=== PATIENT | male | born 1960 | race Caucasian/White ===

== ENCOUNTER 2016-07-08 13:56 | Emergency (ER) | payer OTHER ==
--- NOTE | 2016-07-08 15:41 | DIAGNOSTIC IMAGING REPORT ---
PROCEDURE: XR CHEST 2 VIEW INDICATION: FEVER TECHNIQUE: PA and lateral view. COMPARISON: None. FINDINGS: Retrocardiac parenchymal changes suggestive of pneumonia. No effusion. Cardiovascular structures are normal. Bony thorax is unremarkable. IMPRESSION: 1. Retrocardiac infiltrate 2. Results discussed with Dr. Skelton
--- NOTE | 2016-07-08 18:44 | ED CLINICAL REPORT ---
Clinical Report - Physicians/Mid Levels [facility] [address] [place] [address] 07/08/2016 13:57 Patient: KATELYN HALL Time Seen: 14:47 Jul 08 2016. Arrived- By private vehicle. Historian- patient. CPT: ER phys charges level 4 (#[id number]). HISTORY OF PRESENT ILLNESS Chief Complaint: COUGH, SORE THROAT and MUSCLE ACHES. Is still present. The illness is described as moderate. The patient has had a cough, chest discomfort, a sore throat, fever and chills. He has had muscle aches. No sputum production, difficulty breathing or chest pain. Additional history - No known contact with a sick individual. ( weak.). Similar symptoms previously: None. Recent medical care: Not recently seen/assessed. REVIEW OF SYSTEMS The patient has had a headache. No eye discomfort, nausea, vomiting, diarrhea or abdominal pain. No hay fever, pedal edema, calf pain, difficulty with urination or skin rash. No enlarged lymph nodes. All systems otherwise negative, except as recorded above. PAST HISTORY Conjunctivitis. Eye Injury. Family history of diabetes. No history of asthma, chronic obstructive pulmonary disease or pneumonia. Medications: None. Allergies: None. SOCIAL HISTORY Never smoker. No alcohol use or drug use. ADDITIONAL NOTES The nursing notes have been reviewed. PHYSICAL EXAM Vital Signs: 07/08/2016 14:09 BP: 143/65. HR: 73. RR: 18. O2 saturation: 97%. Temp: 99.2 F. Appearance: Alert. Patient in mild distress. Eyes: Pupils equal, round and reactive to light. Eyes normal inspection. ENT: Ears normal. Nose normal. Pharynx normal. Uvula midline. Neck: Normal inspection. Neck supple. CVS: Normal heart rate and rhythm. Heart sounds normal. Pulses normal. Respiratory: No respiratory distress. Mild rhonchi present bilaterally. Abdomen: Soft and nontender. Back: Normal inspection. Skin: Skin warm. Normal skin color. No rash. Extremities: Extremities exhibit normal ROM. No calf tenderness. No lower extremity edema. Neuro: Oriented X 3. No motor deficit. No sensory deficit. LABS, X-RAYS, AND EKG Chest X-ray: Patchy infiltrate in the left lower lobe. Consistent with pneumonia. Views: PA and lateral. Technique: good. The X-rays were independently viewed by me, interpreted by the radiologist and discussed with the radiologist. Laboratory Tests: CBC w Diff: (GUTIERREZ: 07/08/2016 16:10) ( [facility] 07/08/2016 16:40) Final results Test Result Flag Units (Reference) WHITE BLOOD COUNT 5.4 K/uL (4.5-11.5) RED BLOOD COUNT 5.28 M/uL (4.50-5.90) HEMOGLOBIN 14.4 gm/dL (13.5-17.5) HEMATOCRIT 43.6 % (41.0-53.0) MEAN CELL VOLUME 83 fL (80-100) MEAN CORPUSCULAR HGB 27 pg (26-34) MEAN CORPUSCULAR HGB CONC 33 g/dL (31-37) RED CELL DISTRIBUTION WIDTH 13.8 % (11.6-14.8) PLATELET COUNT 148 L K/uL (150-400) NEUTROPHIL % 70.1 % (50-75) LYMPH % 18.1 L % (25-40) MONO % 11.4 % (3-14) EOSINOPHIL % 0.1 % (0-4) BASOPHIL % 0.3 % (0-2) CMP: (GUTIERREZ: 07/08/2016 16:10) ( MsgRcvd 07/08/2016 16:51) Final results Test Result Flag Units (Reference) GLUCOSE 85 mg/dL (70-110) BUN 11 mg/dL (7-18) CREATININE 0.6 mg/dL (0.6-1.3) Estimated GFR >60 mL/min Estimated GFR- >60 mL/min Note: Persistent reduction over 3 months in eGFR<60 mL/min/1.73 m2 defines CKD. Patients with eGFR values>=60 mL/min/1.73 m2 may also have CKD if evidence ofpersistent proteinuria. Additional information may be foundat [email or web address].org. SODIUM 138 mmol/L (136-145) POTASSIUM 3.6 mmol/L (3.5-5.1) CHLORIDE 102 mmol/L (98-107) CARBON DIOXIDE 26 mmol/L (21-32) CALCIUM 8.3 L mg/dL (8.5-10.1) TOTAL PROTEIN 7.0 g/dL (6.4-8.2) ALBUMIN 3.1 L g/dL (3.3-5.0) BILIRUBIN, TOTAL 0.5 mg/dL (0.0-1.0) ALKALINE PHOSPHATASE 60 U/L (46-116) AST (SGOT) 21 U/L (15-37) ALT (SGPT) 38 U/L (12-78) Rapid Influenza Screen: (GUTIERREZ: 07/08/2016 14:15) ( MsgRcvd 07/08/2016 15:34) Final results SPECIMEN DESCRIPTION: NASAL Test Result Flag Units (Reference) RAPID INFLUENZA SCREEN CALLED TO: EMILY RODRIGUEZ ED -- DATE: 07/08/16 INFLUENZA A: NEGATIVE SCREEN FOR INFLUENZA A INFLUENZA B: POSITIVE SCREEN FOR INFLUENZA B . PROGRESS AND PROCEDURES Course of Care: IV NS Tylenol po Zofran 4mg ODT po Levaquin 750 mg IV Septra DS 2 po Patient is stable. Symptoms better. Patient/family counseled. Disposition: Discharged. Condition: stable. CLINICAL IMPRESSION Bacterial bronchopneumonia. Vital signs recorded and reviewed; empiric antibiotics given in the ED. No hypoxemia or respiratory failure. Influenza type B with upper respiratory infection and pneumonia. INSTRUCTIONS No strenuous activity. Rest. Do not work for two days until better. Drink plenty of fluids. Warnings: Further evaluation is necessary. Prescription Medications: Levaquin 750 mg: take 1 tab orally every day for 10 days. No refills. Trimethoprim-Sulfamethoxazole DS: take 1 tablet orally every 12 hours for 10 days. No refill. Hydrocodone / APAP Liquid 7.5mg/325mg/15 mL: take ten (10) mL orally every 4 hours as needed. Dispense two hundred (200) mL. No refill. (cough) Follow-up: Follow up with your doctor in two days. Call for an appointment. Understanding of the discharge instructions verbalized by patient and family. Discharge instructions reviewed with and understanding was verbalized by tag press operator. (Electronically signed by Teofilo Skelton MD 07/09/2016 13:23)
--- NOTE | 2016-07-08 18:44 | ED NURSING NOTES ---
Clinical Report - Nurses [facility] [address] [place] [address] 07/08/2016 13:57 Patient: KATELYN HALL TRIAGE Triage time 14:Jul 08 2016. Acuity: LEVEL 3. Chief Complaint: FEVER, COUGH, SORE THROAT and BODY ACHES. Alert. No acute distress. --14:13 Gabby Correa R.N. 14:09 07/08/16. BP: 143/65. HR: 73. RR: 18. O2 saturation: 97%. Temp: 99.2 F. Pain level now 11/07. --14:13 Gabby Correa R.N. Weight: 121.5 kg stated. Height/Length: 70 inches Per Patient. BMI: 38.4. --14:08 Gabby Correa R.N. Medications None. --14:11 Gabby Correa R.N. Medication/allergy information source: the patient. --14: Gabby Correa R.N. Allergies None. --14:11 Gabby Correa R.N. History Arrived by private vehicle. Historian: patient. Accompanied by friend. Primary physician (Dr. Polo). ( 3 days of Flu Like Symptoms). PAST MEDICAL HX: Has not received seasonal influenza immunization. SOCIAL HX: Never smoker. No drug use. No recent travel. No known contact with a sick individual. FALL RISK ASSESSMENT: Fall risk assessment completed. No fall risk identified. NUTRITIONAL RISK ASSESSMENT: The nutritional risk assessment revealed no deficiencies. FUNCTIONAL ASSESSMENT: Functional assessment: no impairments noted. LEARNING NEEDS ASSESSMENT: The learning needs assessment revealed no barriers. SKIN INTEGRITY ASSESSMENT: Skin integrity risk assessment completed. No skin integrity risk identified. --14:13 Gabby Correa R.N. PROBLEMS: Conjunctivitis. Eye Injury. Family history of diabetes. --14:11 Gabby Correa R.N. Interventions ID band on patient. To room. --14:13 Gabby Correa R.N. PHYSICAL ASSESSMENT Ambulatory to room. GENERAL / NEURO / PSYCH: Oriented X 4. Appears in no acute distress. RESPIRATORY: Respirations not labored. Nonproductive cough. CVS: Capillary refill less than 2 seconds. SKIN: Hot skin. --14:32 Gabby Correa R.N. NURSING PROGRESS NOTES Patient ready for evaluation- ED physician notified. --14:13 Gabby Correa R.N. Flu swab obtained by RN via nasal swab. --14:13 Gabby Correa R.N. 14:16 07/08/16. Patient ID band checked for patient name and birthdate: patient confirmed. Flu swab obtained by RN via nasal pharyngeal swab. Labeled in the presence of the patient and sent to lab. --14:16 Altagracia Hilliard 15:04 07/08/2016 Tylenol (Acetaminophen) PO Tablets 325 mg given. Allergies verified and confirmed 5 rights. --15:04 Altagracia Hilliard 15:04 07/08/16. ( Pt given water with ERMD approval.). --15:04 Altagracia Hilliard 15:06. Care transferred and report received. --15:10 Pat Santana R.N. 15:10 07/08/16. Patient transported to radiology by stretcher with tech. --15:10 Pat Santana R.N. 15:17 07/08/16. Patient returned from radiology by stretcher with tech. --15:17 Pat Santana R.N. ( PT GIVEN DINNER TRAY). --16:44 Azul Gamble 16:00 07/08/2016 Bactrim DS (Sulfamethoxazole-TMP DS) PO Tablets 2 tab given. Allergies verified and confirmed 5 rights. --17:02 Pat Santana R.N. 16:10 07/08/2016 Site #1 started via IV in the right antecubital space with an 20g angiocath, with aseptic technique and good blood return. Blood drawn: rainbow set and cultures x1. Labeled in the presence of the patient and sent to the lab. Saline lock flushed with saline. --17:00 Pat Santana R.N. 16:10 07/08/2016 Started bag #1 1000 mL IV Fluids IV NS (Saline); at 100 mL/hr over 1 hour(s) via site #1 via IV pump. IV patency established. IV site checked: no pain, redness, or swelling. IV flushed thoroughly pre- and post-medication administration. --17:01 Pat Santana R.N. 16:15 07/08/2016 Zofran (Ondansetron HCl) IVP 4 mg given over 1 minute(s) via site #1. IV patency established. IV site checked: no pain, redness, or swelling. IV flushed thoroughly pre- and post-medication administration. IVP given by RN. --17:02 Pat Santana R.N. 16:25 07/08/2016 Started 750 mg of Levofloxacin IVPB in bag #1 150 mL; at 100 mL/hr over 90 minute(s) via site #1 via IV pump. --17:03 Pat Santana R.N. late entry- 16:00 pt given po antibioitics, FSBS done with IV start- 87 by [facility]. --17:04 Pat Santana R.N. 16:45. ( Pt watching t.v. in no acute distress, occasional coughing noted). --17:05 Pat Santana R.N. 16:45 07/08/16. BP: 105/51. HR: 70. RR: 18. O2 saturation: 96% on room air. Temp: deferred. Pain level now: 11/07. --17:34 Pat Santana R.N. 15:30. ( Pt resting quietly, finished 90% of dinner tray, in no acute distress. IV infusing well). --17:35 Pat Santana R.N. 18:10 07/08/2016 Levofloxacin IVPB Discontinued: bag #1 infused upon discharge. Total amount infused: 150 mL. --18:26 Pat Santana R.N. correction to prior entry -time of above entry 1730 Not 1530. --21:26 Pat Santana R.N. 18:10 07/08/2016 IV Fluids IV NS Discontinued: bag #1 infused upon discharge. Total amount infused: 1000 mL. IV patency established. IV site checked: no pain, redness, or swelling. IV flushed thoroughly. ( rate reduced last 100cc to complete with infusion of levaquin IVPB). --21:28 Pat Santana R.N. 18:20 07/08/2016 Site #1 removed upon discharge. Bandaid applied. --21:28 Pat Santana R.N. 18:20. ( IVPB complete. IV stopped. site converted to saline lock. Pt taking po fluids, waiting for discharge). --21:29 Pat Santana R.N. DISPOSITION / DISCHARGE 18:50. Condition at departure: unchanged and stable. No learning barriers present. Discharge instructions provided and reviewed with the patient and spouse. Reviewed medication(s) (septra, levaquin, vicodin). Patient and spouse verbalized understanding. Written instructions provided in [place]. The patient was discharged home and accompanied by spouse. He left the Emergency Department ambulatory and via private vehicle. Spouse driving. --21:25 Pat Santana R.N. 18:50 07/08/16. BP: 145/72. HR: 74. RR: 18. O2 saturation: 98%. Temp: 98.8 F. Pain level now: 11/07. --21:25 Pat Santana R.N. Locked/Released at 07/08/2016 21:30 by Pat Santana R.N.
--- NOTE | 2016-07-08 18:44 | ED ORDER SUMMARY ---
..... Patient: KATELYN HALL OrderSheet [facility] VisitID: [id number] [address] [place] [address] 56y, M Registration Date/Time: 07/08/2016 ORDER SHEET Weight: 121.5 kg (stated) Allergies: None GENERAL ORDERS: Rapid Influenza Screen (Nasal Pharyngeal) (nasal) Urgent (14:14 07/08/2016 SBalde R.N. per protocol) (14:16 LMuller) Chest 2V Urgent (15:05 07/08/2016 Justyn SAAVEDRA) (Ack 15:15 LMuller) (15:26 DDean R.N.) Blood Culture (No) (N/A) Urgent (15:41 07/08/2016 Justyn SAAVEDRA) (Ack 15:44 LMuller) (16:58 DDean R.N.) CBC w Diff Urgent (15:42 07/08/2016 Justyn SAAVEDRA) (Ack 15:44 LMuller) (16:58 DDean R.N.) CMP Urgent (15:42 07/08/2016 Justyn SAAVEDRA) (Ack 15:44 LMuller) (16:58 DDean R.N.) MEDICATION ORDERS: Tylenol PO 325 mg (NOW) (15:03 07/08/2016 AScuck verbal order read back to Justyn SAAVEDRA) (15:04 ASchmuck) Bactrim DS PO (Tablet 800-160 mg) 2 tabs (NOW) (15:42 07/08/2016 Justyn SAAVEDRA) (Ack 15:59 DDean R.N.) (17:02 DDean R.N.) IV FLUIDS: IV NS : initial bolus 1000 mL (1000 mL/hr), then none - for X1 (NOW); Routine (15:41 07/08/2016 Justyn SAAVEDRA) (Ack 15:59 DDean R.N.) (17:01 DDean R.N.) Zofran IV 4 mg (NOW) (15:41 07/08/2016 Justyn SAAVEDRA) (Ack 15:59 DDean R.N.) (17:02 DDean R.N.) Levofloxacin IV 750 mg/150 mL (NOW) (15:42 07/08/2016 Justyn SAAVEDRA) ([facility] 15:59 DDean R.N.) (17:03 DDean R.N.) ORDER SHEET NOTES: [Electronically signed by Pat Santana R.N. (21:30 07/08/2016)] [Electronically signed by Teofilo Skelton MD (13:23 07/09/2016)] [Electronically locked/signed by Pat Santana R.N. (21:30 07/08/2016)]
--- NOTE | 2016-07-08 18:44 | ED CLINICAL REPORT ---
Clinical Report - Physicians/Mid Levels [facility] [address] [place] [address] 07/08/2016 13:57 Patient: KATELYN HALL Time Seen: 14:47 Jul 08 2016. Arrived- By private vehicle. Historian- patient. CPT: ER phys charges level 4 (#[id number]). HISTORY OF PRESENT ILLNESS Chief Complaint: COUGH, SORE THROAT and MUSCLE ACHES. Is still present. The illness is described as moderate. The patient has had a cough, chest discomfort, a sore throat, fever and chills. He has had muscle aches. No sputum production, difficulty breathing or chest pain. Additional history - No known contact with a sick individual. ( weak.). Similar symptoms previously: None. Recent medical care: Not recently seen/assessed. REVIEW OF SYSTEMS The patient has had a headache. No eye discomfort, nausea, vomiting, diarrhea or abdominal pain. No hay fever, pedal edema, calf pain, difficulty with urination or skin rash. No enlarged lymph nodes. All systems otherwise negative, except as recorded above. PAST HISTORY Conjunctivitis. Eye Injury. Family history of diabetes. No history of asthma, chronic obstructive pulmonary disease or pneumonia. Medications: None. Allergies: None. SOCIAL HISTORY Never smoker. No alcohol use or drug use. ADDITIONAL NOTES The nursing notes have been reviewed. PHYSICAL EXAM Vital Signs: 07/08/2016 14:09 BP: 143/65. HR: 73. RR: 18. O2 saturation: 97%. Temp: 99.2 F. Appearance: Alert. Patient in mild distress. Eyes: Pupils equal, round and reactive to light. Eyes normal inspection. ENT: Ears normal. Nose normal. Pharynx normal. Uvula midline. Neck: Normal inspection. Neck supple. CVS: Normal heart rate and rhythm. Heart sounds normal. Pulses normal. Respiratory: No respiratory distress. Mild rhonchi present bilaterally. Abdomen: Soft and nontender. Back: Normal inspection. Skin: Skin warm. Normal skin color. No rash. Extremities: Extremities exhibit normal ROM. No calf tenderness. No lower extremity edema. Neuro: Oriented X 3. No motor deficit. No sensory deficit. LABS, X-RAYS, AND EKG Chest X-ray: Patchy infiltrate in the left lower lobe. Consistent with pneumonia. Views: PA and lateral. Technique: good. The X-rays were independently viewed by me, interpreted by the radiologist and discussed with the radiologist. Laboratory Tests: CBC w Diff: (GUTIERREZ: 07/08/2016 16:10) ( [facility] 07/[place] 16:40) Final results Test Result Flag Units (Reference) WHITE BLOOD COUNT 5.4 K/uL (4.5-11.5) RED BLOOD COUNT 5.28 M/uL (4.50-5.90) HEMOGLOBIN 14.4 gm/dL (13.5-17.5) HEMATOCRIT 43.6 % (41.0-53.0) MEAN CELL VOLUME 83 fL (80-100) MEAN CORPUSCULAR HGB 27 pg (26-34) MEAN CORPUSCULAR HGB CONC 33 g/dL (31-37) RED CELL DISTRIBUTION WIDTH 13.8 % (11.6-14.8) PLATELET COUNT 148 L K/uL (150-400) NEUTROPHIL % 70.1 % (50-75) LYMPH % 18.1 L % (25-40) MONO % 11.4 % (3-14) EOSINOPHIL % 0.1 % (0-4) BASOPHIL % 0.3 % (0-2) CMP: (GUTIERREZ: 07/08/2016 16:10) ( MsgRcvd 07/08/2016 16:51) Final results Test Result Flag Units (Reference) GLUCOSE 85 mg/dL (70-110) BUN 11 mg/dL (7-18) CREATININE 0.6 mg/dL (0.6-1.3) Estimated GFR >60 mL/min Estimated GFR- >60 mL/min Note: Persistent reduction over 3 months in eGFR<60 mL/min/1.73 m2 defines CKD. Patients with eGFR values>=60 mL/min/1.73 m2 may also have CKD if evidence ofpersistent proteinuria. Additional information may be foundat [email or web address].org. SODIUM 138 mmol/L (136-145) POTASSIUM 3.6 mmol/L (3.5-5.1) CHLORIDE 102 mmol/L (98-107) CARBON DIOXIDE 26 mmol/L (21-32) CALCIUM 8.3 L mg/dL (8.5-10.1) TOTAL PROTEIN 7.0 g/dL (6.4-8.2) ALBUMIN 3.1 L g/dL (3.3-5.0) BILIRUBIN, TOTAL 0.5 mg/dL (0.0-1.0) ALKALINE PHOSPHATASE 60 U/L (46-116) AST (SGOT) 21 U/L (15-37) ALT (SGPT) 38 U/L (12-78) Rapid Influenza Screen: (GUTIERREZ: 07/08/2016 14:15) ( MsgRcvd 07/08/2016 15:34) Final results SPECIMEN DESCRIPTION: NASAL Test Result Flag Units (Reference) RAPID INFLUENZA SCREEN CALLED TO: EMILY RODRIGUEZ ED -- DATE: 07/08/16 INFLUENZA A: NEGATIVE SCREEN FOR INFLUENZA A INFLUENZA B: POSITIVE SCREEN FOR INFLUENZA B . PROGRESS AND PROCEDURES Course of Care: IV NS Tylenol po Zofran 4mg ODT po Levaquin 750 mg IV Septra DS 2 po Patient is stable. Symptoms better. Patient/family counseled. Disposition: Discharged. Condition: stable. CLINICAL IMPRESSION Bacterial bronchopneumonia. Vital signs recorded and reviewed; empiric antibiotics given in the ED. No hypoxemia or respiratory failure. Influenza type B with upper respiratory infection and pneumonia. INSTRUCTIONS No strenuous activity. Rest. Do not work for two days until better. Drink plenty of fluids. Warnings: Further evaluation is necessary. Prescription Medications: Levaquin 750 mg: take 1 tab orally every day for 10 days. No refills. Trimethoprim-Sulfamethoxazole DS: take 1 tablet orally every 12 hours for 10 days. No refill. Hydrocodone / APAP Liquid 7.5mg/325mg/15 mL: take ten (10) mL orally every 4 hours as needed. Dispense two hundred (200) mL. No refill. (cough) Follow-up: Follow up with your doctor in two days. Call for an appointment. Understanding of the discharge instructions verbalized by patient and family. Discharge instructions reviewed with and understanding was verbalized by cleaning professional. (Electronically signed by Teofilo Skelton MD 07/09/2016 13:23)
--- NOTE | 2016-07-08 18:44 | ED ORDER SUMMARY ---
..... Patient: KATELYN HALL OrderSheet [facility] VisitID: [id number] [address] [place] [address] 56y, M Registration Date/Time: 07/08/2016 ORDER SHEET Weight: 121.5 kg (stated) Allergies: None GENERAL ORDERS: Rapid Influenza Screen (Nasal Pharyngeal) (nasal) Urgent (14:14 07/08/2016 SBalde R.N. per protocol) (14:16 LMuller) Chest 2V Urgent (15:05 07/08/2016 Justyn SAAVEDRA) (Ack 15:15 LMuller) (15:26 DDean R.N.) Blood Culture (No) (N/A) Urgent (15:41 07/08/2016 Justyn SAAVEDRA) (Ack 15:44 LMuller) (16:58 DDean R.N.) CBC w Diff Urgent (15:42 07/08/2016 Justyn SAAVEDRA) (Ack 15:44 LMuller) (16:58 DDean R.N.) CMP Urgent (15:42 07/08/2016 Justyn SAAVEDRA) (Ack 15:44 LMuller) (16:58 DDean R.N.) MEDICATION ORDERS: Tylenol PO 325 mg (NOW) (15:03 07/08/2016 AScuck verbal order read back to Justyn SAAVEDRA) (15:04 ASchmuck) Bactrim DS PO (Tablet 800-160 mg) 2 tabs (NOW) (15:42 07/08/2016 Justyn SAAVEDRA) (Ack 15:59 DDean R.N.) (17:02 DDean R.N.) IV FLUIDS: IV NS : initial bolus 1000 mL (1000 mL/hr), then none - for X1 (NOW); Routine (15:41 07/08/2016 Justyn SAAVEDRA) (Ack 15:59 DDean R.N.) (17:01 DDean R.N.) Zofran IV 4 mg (NOW) (15:41 07/08/2016 Justyn SAAVEDRA) (Ack 15:59 DDean R.N.) (17:02 DDean R.N.) Levofloxacin IV 750 mg/150 mL (NOW) (15:42 07/08/2016 Justyn SAAVEDRA) ([facility] 15:59 DDean R.N.) (17:03 DDean R.N.) ORDER SHEET NOTES: [Electronically signed by Pat Santana R.N. (21:30 07/08/2016)] [Electronically signed by Teofilo Skelton MD (13:23 07/09/2016)] [Electronically locked/signed by Pat Santana R.N. (21:30 07/08/2016)]
--- NOTE | 2016-07-09 13:24 | ED MED RECONCILIATION SUMMARY ---
Patient: KATELYN HALL Medication Reconciliation Report [facility] VisitID: [id number] [place] [address] 56y, M Registration Date/Time: 07/08/2016 Weight: 121.5 kg Height/Length: 70 in. BMI: 38.4 ALLERGIES: None The patient's Home Medications are listed below: NONE. The source(s) of the original Home Medication information: patient The following Medications were given to the patient in the Emergency Department: Tylenol [PO] PO 325 mg, administered: 07/08/2016 3:04:00 PM IV NS IV Fluids bolus 0, then 100 mL/hr, administered: 07/08/2016 4:10:00 PM Zofran [IVP] IVP 4 mg, administered: 07/08/2016 4:15:00 PM Bactrim DS [PO] PO 2 tab, administered: 07/08/2016 4:00:00 PM Levofloxacin [IVPB] IVPB bolus 0, then 750 mg 100 mL/hr, administered: 07/08/2016 4:25:00 PM The following Medications were prescribed to the patient: Levaquin 750 mg: take 1 tab orally every day for 10 days. No refills. -- Teofilo Skelton MD Trimethoprim-Sulfamethoxazole DS: take 1 tablet orally every 12 hours for 10 days. No refill. -- Teofilo Skelton MD Hydrocodone / APAP Liquid 7.5mg/325mg/15 mL: take ten (10) mL orally every 4 hours as needed. Dispense two hundred (200) mL. No refill.(cough) -- Teofilo Skelton MD
--- NOTE | 2016-07-09 13:24 | ED DISCHARGE INSTRUCTIONS ---
Patient: KATELYN HALL General Instructions [facility] VisitID: [id number] [place] [address] 56y, M Registration Date/Time: 07/08/2016 Bacterial bronchopneumonia. Vital signs recorded and reviewed; empiric antibiotics given in the ED. No hypoxemia or respiratory failure. Influenza type B with upper respiratory infection and pneumonia. INSTRUCTIONS No strenuous activity. Rest. Do not work for two days until better. Drink plenty of fluids. Warnings: Further evaluation is necessary. Prescription Medications: Levaquin 750 mg: take 1 tab orally every day for 10 days. No refills. Trimethoprim-Sulfamethoxazole DS: take 1 tablet orally every 12 hours for 10 days. No refill. Hydrocodone / APAP Liquid 7.5mg/325mg/15 mL: take ten (10) mL orally every 4 hours as needed. Dispense two hundred (200) mL. No refill. (cough) Follow-up: Follow up with your doctor in two days. Call for an appointment. Understanding of the discharge instructions verbalized by patient and family. Discharge instructions reviewed with and understanding was verbalized by runner worker. ADDITIONAL INFORMATION Pneumonia (Adult) Pneumonia is an infection deep within the lung, in the small air sacs (alveoli). It may be due to a virus or bacteria and is usually treated with an antibiotic. Severe cases require treatment in the hospital. Milder cases can be treated at home. Symptoms usually start to improve during the first2 days of treatment. Home Care: Rest at home for the first 23 days or until you feel stronger. When resuming activity, dont let yourself become overly tired. Avoid exposure to cigarette smoke (yours or others). You may use acetaminophen (Tylenol) or ibuprofen (Motrin, Advil) to control fever or pain, unless another medicine was prescribed. [NOTE: If you have chronic liver or kidney disease or ever had a stomach ulcer or GI bleeding, talk with your doctor before using these medicines.] (Aspirin should never be used in anyone under 18 years of age who is ill with a fever. It may cause severe liver damage.) Your appetite may be poor so a light diet is fine. Keep well hydrated by drinking 68 glasses of fluids per day (water, sport drinks such as Gatorade, sodas without caffeine, juices, tea, soup, etc.). This will help loosen secretions in the lung, making it easier for you to cough up the phlegm (sputum). If you also have heart or kidney disease, check with your doctor before you drink extra amounts of fluids. Finish all antibiotic medicine prescribed, even if you are feeling better after a few days. Follow Up with your doctor in the next 23 days (or as advised) to be sure you are responding properly to the medicine. [NOTE: If you are age 65 or older, or if you have chronic lung disease (asthma, emphysema or COPD), we recommendthe pneumococcal vaccination and a yearlyinfluenzavaccination(flu-shot) every . Ask your doctor about this.] Get Prompt Medical Attention if any of the following occur: Not getting better within the first 48 hours of treatment Increasing shortness of breath or rapid breathing (over 25 breaths/minute) Coughing up blood or increasing chest pain with breathing Fever of 100.4F (38C) oral or higher, not better with fever medication Increasing weakness, dizziness or fainting Increasing thirst or dry mouth Sinus pain, headache or a stiff neck Chest pain not caused by coughing Influenza (Adult) Influenza, also called the flu, is a viral illness that affects the air passages of the lungs. It differs from the common cold. It is highly contagious. It may be spread through the air by coughing and sneezing or by direct contact (touching the sick person and then touching your own eyes, nose or mouth). Illness starts 1-3 days after exposure and lasts for 1-2 weeks. Antibiotics are usually not needed unless a complication appears (ear or sinus infection or pneumonia). Symptoms may be mild or severe and can include extreme tiredness (wanting to stay in bed all day), chills, fevers, muscle aching, soreness with eye movement, headache, and a dry, hacking cough. Home Care: Avoid exposure to cigarette smoke (yours or others). Tylenol or ibuprofen (Advil) will help fever, muscle aching, and headache. To avoid risk of liver injury, aspirin should not be used in children and teenagers under 18 with this illness. Nausea and loss of appetite are common. A light diet is recommended. Avoid dehydration by drinking 6-8 glasses of fluids per day (water, sport drinks like Gatorade, soft drinks without caffeine, juices, tea, soup, etc.). Extra fluids will also help loosen secretions in the nose and lungs. Rjht-kwt-hsmpqug cold medicines will not shorten the duration of the illness but may be helpful for the following symptoms: cough (Robitussin DM); sore throat (Chloraseptic lozenges or spray); nasal and sinus congestion (Actifed or Sudafed). [NOTE: Do not use decongestants if you have high blood pressure.] Stay home until your fever has been gone for at least 24 hours (without the use of fever-reducing medications such as ibuprofen). Follow Up with your doctor or as directed by our staff if you are not improving over the next week. Note: If you are age 65 or older, or if you have chronic asthma or COPD, we recommend a pneumococcal vaccinationevery five years. All adults shouldreceive a yearly influenza vaccination every . Ask your doctor about this. Get Prompt Medical Attention if any of the following occur: Cough with lots of colored sputum (mucus) or blood in your sputum Chest pain, shortness of breath, wheezing, or difficulty breathing Severe headache, face, neck or ear pain New rash Fever of 100.4F (38C) oral or higher, not better with fever medication Confusion, behavior change or seizure Severe weakness or dizziness Levofloxacin Oral tablet What is this medicine? LEVOFLOXACIN (vivi alston) is a quinolone antibiotic. It is used to treat certain kinds of bacterial infections. It will not work for colds, flu, or other viral infections. How should I use this medicine? Take this medicine by mouth with a full glass of water. Follow the directions on the prescription label. This medicine can be taken with or without food. Take your medicine at regular intervals. Do not take your medicine more often than directed. Do not skip doses or stop your medicine early even if you feel better. Do not stop taking except on your doctor's advice. A special MedGuide will be given to you by the pharmacist with each prescription and refill. Be sure to read this information carefully each time. Talk to your microstrategy architect developer regarding the use of this medicine in children. While this drug may be prescribed for children as young as 6 months for selected conditions, precautions do apply. What side effects may I notice from receiving this medicine? Side effects that you should report to your doctor or health child care director as soon as possible: -allergic reactions like skin rash or hives, swelling of the face, lips, or tongue -changes in vision -confusion, nightmares or hallucinations -difficulty breathing -irregular heartbeat, chest pain -joint, muscle or tendon pain -pain or difficulty passing urine -persistent headache with or without blurred vision -redness, blistering, peeling or loosening of the skin, including inside the mouth -seizures -unusual pain, numbness, tingling, or weakness -vaginal irritation, discharge Side effects that usually do not require medical attention (report to your doctor or health child care director if they continue or are bothersome): -diarrhea -dry mouth -headache -stomach upset, nausea -trouble sleeping What may interact with this medicine? Do not take this medicine with any of the following medications: - arsenic trioxide - chloroquine - droperidol - medicines for irregular heart rhythm like amiodarone, disopyramide, dofetilide, flecainide, quinidine, procainamide, sotalol - some medicines for depression or mental problems like phenothiazines, pimozide, and ziprasidone This medicine may also interact with the following medications: - amoxapine -antacids - cisapride - dairy products - didanosine (ddI) buffered tablets or powder - haloperidol - multivitamins -NSAIDS, medicines for pain and inflammation, like ibuprofen or naproxen - retinoid products like tretinoin or isotretinoin - risperidone - some other antibiotics like clarithromycin or erythromycin - sucralfate - theophylline - warfarin What if I miss a dose? If you miss a dose, take it as soon as you remember. If it is almost time for your next dose, take only that dose. Do not take double or extra doses. Where should I keep my medicine? Keep out of the reach of children. Store at room temperature between 15 and 30 degrees C (59 and 86 degrees F). Keep in a tightly closed container. Throw away any unused medicine after the expiration date. What should I tell my health care provider before I take this medicine? They need to know if you have any of these conditions: cerebral disease irregular heartbeat kidney disease seizure disorder an unusual or allergic reaction to levofloxacin, other antibiotics or medicines, foods, dyes, or preservatives or trying to get breast-feeding What should I watch for while using this medicine? Tell your doctor or health child care director if your symptoms do not improve or if they get worse. Drink several glasses of water a day and cut down on drinks that contain caffeine. You must not get dehydrated while taking this medicine. You may get drowsy or dizzy. Do not drive, use machinery, or do anything that needs mental alertness until you know how this medicine affects you. Do not sit or stand up quickly, especially if you are an older patient. This reduces the risk of dizzy or fainting spells. This medicine can make you more sensitive to the sun. Keep out of the sun. If you cannot avoid being in the sun, wear protective clothing and use a sunscreen. Do not use sun lamps or tanning beds/booths. Contact your doctor if you get a sunburn. If you are a diabetic monitor your blood glucose carefully. If you get an unusual reading stop taking this medicine and call your doctor right away. Do not treat diarrhea with ajgc-ugp-twqgrvj products. Contact your doctor if you have diarrhea that lasts more than 2 days or if the diarrhea is severe and watery. Avoid antacids, calcium, iron, and zinc products for 2 hours before and 2 hours after taking a dose of this medicine. Sulfamethoxazole, Trimethoprim Oral tablet What is this medicine? SULFAMETHOXAZOLE; TRIMETHOPRIM or SMX-TMP (suhl fuh meth OK hector zohl; trye METH oh prim) is a combination of a sulfonamide antibiotic and a second antibiotic, trimethoprim. It is used to treat or prevent certain kinds of bacterial infections. It will not work for colds, flu, or other viral infections. How should I use this medicine? Take this medicine by mouth with a full glass of water. Follow the directions on the prescription label. Take your medicine at regular intervals. Do not take it more often than directed. Do not skip doses or stop your medicine early. Talk to your microstrategy architect developer regarding the use of this medicine in children. Special care may be needed. This medicine has been used in children as young as 2 months of age. What side effects may I notice from receiving this medicine? Side effects that you should report to your doctor or health child care director as soon as possible: allergic reactions like skin rash or hives, swelling of the face, lips, or tongue breathing problems fever or chills, sore throat irregular heartbeat, chest pain joint or muscle pain pain or difficulty passing urine red pinpoint spots on skin redness, blistering, peeling or loosening of the skin, including inside the mouth unusual bleeding or bruising unusually weak or tired yellowing of the eyes or skin Side effects that usually do not require medical attention (report to your doctor or health child care director if they continue or are bothersome): diarrhea dizziness headache loss of appetite nausea, vomiting nervousness What may interact with this medicine? Do not take this medicine with any of the following medications: aminobenzoate potassium dofetilide metronidazole This medicine may also interact with the following medications: BRIGID inhibitors like benazepril, enalapril, lisinopril, and ramipril cyclosporine digoxin diuretics indomethacin medicines for diabetes methenamine methotrexate phenytoin potassium supplements pyrimethamine sulfinpyrazone tricyclic antidepressants warfarin What if I miss a dose? If you miss a dose, take it as soon as you can. If it is almost time for your next dose, take only that dose. Do not take double or extra doses. Where should I keep my medicine? Keep out of the reach of children. Store at room temperature between 20 to 25 degrees C (68 to 77 degrees F). Protect from light. Throw away any unused medicine after the expiration date. What should I tell my health care provider before I take this medicine? They need to know if you have any of these conditions: anemia asthma being treated with anticonvulsants if you frequently drink alcohol containing drinks kidney disease liver disease low level of folic acid or cdonpui-[id number] dehydrogenase poor nutrition or malabsorption porphyria severe allergies thyroid disorder an unusual or allergic reaction to sulfamethoxazole, trimethoprim, sulfa drugs, other medicines, foods, dyes, or preservatives or trying to get breast-feeding What should I watch for while using this medicine? Tell your doctor or health child care director if your symptoms do not improve. Drink several glasses of water a day to reduce the risk of kidney problems. Do not treat diarrhea with over the counter products. Contact your doctor if you have diarrhea that lasts more than 2 days or if it is severe and watery. This medicine can make you more sensitive to the sun. Keep out of the sun. If you cannot avoid being in the sun, wear protective clothing and use a sunscreen. Do not use sun lamps or tanning beds/booths. Hydrocodone Bitartrate, Acetaminophen Oral solution What is this medicine? ACETAMINOPHEN; HYDROCODONE (a set a JAE jesse fen; efraín droe KOE done) is a pain reliever. It is used to treat mild to moderate pain. How should I use this medicine? Take this medicine by mouth. Use a specially marked spoon or dropper to measure your dose. Ask your pharmacist if you do not have a dropper or measuring spoon. Do not use a household spoon. Follow the directions on the prescription label. If the medicine upsets your stomach, take it with food or milk. Do not take more medicine than you are told to take. Talk to your microstrategy architect developer regarding the use of this medicine in children. This medicine is not approved for use in children. What side effects may I notice from receiving this medicine? Side effects that you should report to your doctor or health child care director as soon as possible: allergic reactions like skin rash, itching or hives, swelling of the face, lips, or tongue breathing problems confusion feeling faint or lightheaded, falls stomach pain yellowing of the eyes or skin Side effects that usually do not require medical attention (report to your doctor or health child care director if they continue or are bothersome): nausea, vomiting stomach upset What may interact with this medicine? alcohol antihistamines isoniazid medicines for depression, anxiety, or psychotic disturbances medicines for sleep muscle relaxants naltrexone narcotic medicines (opiates) for pain phenobarbital ritonavir tramadol What if I miss a dose? If you miss a dose, take it as soon as you can. If it is almost time for your next dose, take only that dose. Do not take double or extra doses. Where should I keep my medicine? Keep out of the reach of children. This medicine can be abused. Keep your medicine in a safe place to protect it from theft. Do not share this medicine with anyone. Selling or giving away this medicine is dangerous and against the law. Store at room temperature between 20 and 25 degrees C (68 and 77 degrees F). Protect from light. Keep container tightly closed. Throw away any unused medicine after the expiration date. Discard unused medicine and used packaging carefully. Pets and children can be harmed if they find used or lost packages. What should I tell my health care provider before I take this medicine? They need to know if you have any of these conditions: brain tumor Crohn's disease, inflammatory bowel disease, or ulcerative colitis drink more than 3 alcohol-containing drinks per day drug abuse or addiction head injury heart or circulation problems kidney disease or problems going to the bathroom liver disease lung disease, asthma, or breathing problems an unusual or allergic reaction to acetaminophen, hydrocodone, other opioid analgesics, other medicines, foods, dyes, or preservatives or trying to get breast-feeding What should I watch for while using this medicine? Tell your doctor or health child care director if your pain does not go away, if it gets worse, or if you have new or a different type of pain. You may develop tolerance to the medicine. Tolerance means that you will need a higher dose of the medicine for pain relief. Tolerance is normal and is expected if you take this medicine for a long time. Do not suddenly stop taking your medicine because you may develop a severe reaction. Your body becomes used to the medicine. This does NOT mean you are addicted. Addiction is a behavior related to getting and using a drug for a non-medical reason. If you have pain, you have a medical reason to take pain medicine. Your doctor will tell you how much medicine to take. If your doctor wants you to stop the medicine, the dose will be slowly lowered over time to avoid any side effects. You may get drowsy or dizzy when you first start taking the medicine or change doses. Do not drive, use machinery, or do anything that may be dangerous until you know how the medicine affects you. Stand or sit up slowly. There are different types of narcotic medicines (opiates) for pain. If you take more than one type at the same time, you may have more side effects. Give your health care provider a list of all medicines you use. Your doctor will tell you how much medicine to take. Do not take more medicine than directed. Call emergency for help if you have problems breathing. The medicine will cause constipation. Try to have a bowel movement at least every 2 to 3 days. If you do not have a bowel movement for 3 days, call your doctor or health child care director. Too much acetaminophen can be very dangerous. Do not take Tylenol (acetaminophen) or medicines that contain acetaminophen with this medicine. Many non-prescription medicines contain acetaminophen. Always read the labels carefully. You have been given the following additional information: Pneumonia (Adult) Influenza (Adult) Levofloxacin Oral tablet Sulfamethoxazole, Trimethoprim Oral tablet Hydrocodone Bitartrate, Acetaminophen Oral solution No strenuous activity. Rest. Do not work for two days until better. (Electronically signed by Teofilo Skelton MD 07/09/2016 13:23)
--- NOTE | 2016-07-09 13:24 | ED MAR SUMMARY ---
..... Medication Administration Record [facility] [address] [place] [address] Patient: KATELYN HALL Visit ID: [id number] 56y, M Weight: 121.5 kg Height/Length: 70 in BMI: 38.4 ALLERGIES: None Given 15:04 07/08/2016 Altagracia Hilliard, Medication Administered: TYLENOL [PO] (ACETAMINOPHEN), Dose: 325 mg Tablets PO. Medication Ordered: Tylenol PO 325 mg (NOW). Given 16:00 07/08/2016 Pat Santana R.N. Medication Administered: BACTRIM DS [PO] (SULFAMETHOXAZOLE-TMP DS), Dose: 2 tab Tablets PO. Medication Ordered: Bactrim DS PO (Tablet 800-160 mg) 2 tabs (NOW). Start 16:07/08/2016 Pat Santana R.N., Stop 18:10 07/08/2016 Pat Santana R.N. Medication Administered: IV NS (SALINE), Dose: IV Fluids over 1 hour(s), Rate: 100 mL/hr, Dispensed: 1000 mL bag, Site: #1 right AC. Medication Ordered: IV NS : initial bolus 1000 mL (1000 mL/hr), then none - for X1 (NOW); Routine. Given 16:15 07/08/2016 Pat Santana R.N. Medication Administered: ZOFRAN [IVP] (ONDANSETRON HCL), Dose: 4 mg IVP over 1 minute(s), Site: #1 right AC. Medication Ordered: Zofran IV 4 mg (NOW). Start 16:25 07/08/2016 Pat Santana R.N., Stop 18:10 07/08/2016 Pat Santana R.N. Medication Administered: LEVOFLOXACIN [IVPB], Dose: 750 mg IVPB over 90 minute(s), Rate: 100 mL/hr, Dispensed: 150 mL bag, Site: #1 right AC. Medication Ordered: Levofloxacin IV 750 mg/150 mL (NOW).
--- NOTE | 2016-07-09 13:24 | ED MAR SUMMARY ---
..... Medication Administration Record [facility] [address] [place] [address] Patient: KATELYN HALL Visit ID: [id number] 56y, M Weight: 121.5 kg Height/Length: 70 in BMI: 38.4 ALLERGIES: None Given 15:04 07/08/2016 Altagracia Hilliard, Medication Administered: TYLENOL [PO] (ACETAMINOPHEN), Dose: 325 mg Tablets PO. Medication Ordered: Tylenol PO 325 mg (NOW). Given 16:00 07/08/2016 Pat Santana R.N. Medication Administered: BACTRIM DS [PO] (SULFAMETHOXAZOLE-TMP DS), Dose: 2 tab Tablets PO. Medication Ordered: Bactrim DS PO (Tablet 800-160 mg) 2 tabs (NOW). Start 16:07/08/2016 Pat Santana R.N., Stop 18:10 07/08/2016 Pat Santana R.N. Medication Administered: IV NS (SALINE), Dose: IV Fluids over 1 hour(s), Rate: 100 mL/hr, Dispensed: 1000 mL bag, Site: #1 right AC. Medication Ordered: IV NS : initial bolus 1000 mL (1000 mL/hr), then none - for X1 (NOW); Routine. Given 16:15 07/08/2016 Pat Santana R.N. Medication Administered: ZOFRAN [IVP] (ONDANSETRON HCL), Dose: 4 mg IVP over 1 minute(s), Site: #1 right AC. Medication Ordered: Zofran IV 4 mg (NOW). Start 16:25 07/08/2016 Pat Santana R.N., Stop 18:10 07/08/2016 Pat Santana R.N. Medication Administered: LEVOFLOXACIN [IVPB], Dose: 750 mg IVPB over 90 minute(s), Rate: 100 mL/hr, Dispensed: 150 mL bag, Site: #1 right AC. Medication Ordered: Levofloxacin IV 750 mg/150 mL (NOW).
--- NOTE | 2016-07-09 13:24 | ED MED RECONCILIATION SUMMARY ---
Patient: KATELYN HALL Medication Reconciliation Report [facility] VisitID: [id number] [place] [address] 56y, M Registration Date/Time: 07/08/2016 Weight: 121.5 kg Height/Length: 70 in. BMI: 38.4 ALLERGIES: None The patient's Home Medications are listed below: NONE. The source(s) of the original Home Medication information: patient The following Medications were given to the patient in the Emergency Department: Tylenol [PO] PO 325 mg, administered: 07/08/2016 3:04:00 PM IV NS IV Fluids bolus 0, then 100 mL/hr, administered: 07/08/2016 4:10:00 PM Zofran [IVP] IVP 4 mg, administered: 07/08/2016 4:15:00 PM Bactrim DS [PO] PO 2 tab, administered: 07/08/2016 4:00:00 PM Levofloxacin [IVPB] IVPB bolus 0, then 750 mg 100 mL/hr, administered: 07/08/2016 4:25:00 PM The following Medications were prescribed to the patient: Levaquin 750 mg: take 1 tab orally every day for 10 days. No refills. -- Teofilo Skelton MD Trimethoprim-Sulfamethoxazole DS: take 1 tablet orally every 12 hours for 10 days. No refill. -- Teofilo Skelton MD Hydrocodone / APAP Liquid 7.5mg/325mg/15 mL: take ten (10) mL orally every 4 hours as needed. Dispense two hundred (200) mL. No refill.(cough) -- Teofilo Skelton MD
== END 2016-07-08 18:50 | disposition home or self-care (01) ==
LOC: ED SRH 13:56
DX: J10.00 Influenza due to other identified influenza virus with unspecified type of pneumonia (principal); J18.0 Bronchopneumonia, unspecified organism; J06.9 Acute upper respiratory infection, unspecified
CPT/HCPCS: 90065; 90100; 91400; 95059